=== PATIENT | female | born 1995 | race American Indian/Alaskan Native ===

== ENCOUNTER 2021-11-16 06:20 | Inpatient (IN) | payer MEDICAID ==
[~2021-11-16 06:20] MED LIST: CALCIUM CHLORIDE 1,000 MG/10 ML SYRINGE IV ONE; EPINEPHrine 1 MG/10 ML SYRINGE ONE
[2021-11-16] MEDS ORDERED: GLUCAGON (HUMAN RECOMBINANT) 1 MG/ML INJ ONE ×2 (06:26→06:27)
[2021-11-16] MEDS ORDERED: ALTEPLASE 100 MG INJ KIT ONE (06:49)
[2021-11-16] MEDS ORDERED: SODIUM BICARB 8.4% 50 MEQ/50 ML SYRINGE IV ONE ×2 (06:54→09:00)
[2021-11-16] MEDS ORDERED: NORepinephrine/NS 8 MG-250 ML 8 MG/250 ML INFUS..BTL IV ONE (07:13)
[2021-11-16] MEDS ORDERED: CALCIUM CHLORIDE 1,000 MG/10 ML SYRINGE IV ONE ×2 (07:30→09:00)
[2021-11-16] MEDS ORDERED: NORepinephrine/NS 8 MG-250 ML 8 MG/250 ML INFUS..BTL IV SCH (07:30)
[2021-11-16] MEDS ORDERED: MAGNESIUM SULFATE 40GM/1000ML 40 GM/1,000 ML BAG IV ONE (07:34)
[2021-11-16] MEDS ORDERED: MAGNESIUM SULFATE 2 GM/50 ML BAG IV ONE (07:36)
[2021-11-16 07:39] LABS: Mean Corpuscular HGB Conc 27 % (30-34); Red Blood Count 2.64 M/mm3 (3.65-5.03); Red Cell Distribution Width 16.4 % (13.2-15.2)
[2021-11-16 07:42] LABS: Hematocrit 32.1 % (30.3-42.9); Hemoglobin 8.8 gm/dl (10.1-14.3); Mean Corpuscular Volume 122 fl (79-97); Platelet Count 83 K/mm3 (140-440)
--- NOTE | 2021-11-16 07:45 | Emergency Department Report ---
ED General Adult HPI - General Stated complaint: CARDIAC ARREST Time Seen by Provider: 11/16/21 07:20 Source: EMS Mode of arrival: Stretcher Limitations: Other (Cardiac arrest) - History of Present Illness Initial comments: Patient is a 26-year-old female presents to the emergency department via EMS in cardiac arrest. Per EMS the initial call was for difficulty of breathing and upon their arrival the patient was having obvious shortness of breath and was outside awaiting their arrival. Per EMS they state the male who was in the home states the patient has been complaining of abdominal pain for the last couple of days. During further assessment the patient became lethargic and then unresponsive. As the patient was being carried down the steps patient lost pulse. Initial blood glucose was 26 and D5 was initiated. Patient then went to cardiac arrest during transport and the patient was given 4 epis and 2 mg of Narcan. Patient also had episode of V. tach and was shocked and given through the amnio. Patient was intubated in the field and there were reports of blood in the airway thus concern for upper GI bleed. -: Sudden Severity scale (0 -10): 10 Consistency: constant Improves with: none Worsens with: none Associated Symptoms: denies other symptoms Treatments Prior to Arrival: none - Related Data Allergies Allergy/AdvReac Type Severity Reaction Status Date / Time No Known Allergies Allergy Verified 11/16/21 09:16 ED Review of Systems ROS: Stated complaint: CARDIAC ARREST Other details as noted in HPI Comment: Unobtainable due to pts medical conditions ED Physical Exam - General Limitations: Other (Intubated) General appearance: other (Unresponsive, cardiac arrest) - Head Head exam: Present: atraumatic, normocephalic - Eye Eye exam: Absent: scleral icterus, conjunctival injection - ENT ENT exam: Present: mucous membranes moist, other (Dried blood present on the oral mucosa) - Neck Neck exam: Present: normal inspection. Absent: lymphadenopathy - Respiratory Respiratory exam: Present: other (Breath sounds bilaterally with BVM). Absent: rales, stridor - Cardiovascular Cardiovascular Exam: Present: other (Asystole) - GI/Abdominal GI/Abdominal exam: Present: distended, normal bowel sounds. Absent: soft - Extremities Exam Extremities exam: Present: normal inspection - Neurological Exam Neurological exam: Present: other (3T) - Psychiatric Psychiatric exam: Present: other (Unable to assess due to the patient's condition) - Skin Skin exam: Present: warm, dry, intact, normal color ED Course Vital Signs 11/16/21 07:30 Pulse Rate 95 H Blood Pressure 118/53 O2 Sat by Pulse 98 Oximetry - Central Line Placement Right Femoral Consent Obtained: emergent situation Time Out Performed: Yes Patient Placed on Monitor/Pulse Ox: Yes Prep: mask, gloves Central Line Prep: Chlorhexidine scrub Ultrasound Used for Placement: No Central Line Lumen Inserted: triple Reason for Insertion: Emergency Venous Access Bloods Obtained for Lab: Yes Central Line Position: good blood return, all ports aspirated, flus, sutured in place with 3-0 Dressing Applied: Tegaderm Patient Tolerated Procedure: well Complications: none ED Medical Decision Making - Lab Data Result diagrams: 11/16/21 07:25 11/16/21 08:20 Lab Results 11/16/21 11/16/21 11/16/21 Range/Units 07:25 07:25 07:25 WBC 4.9 (4.5-11.0) K/mm3 RBC 2.64 L (3.65-5.03) M/mm3 Hgb 8.8 L (10.1-14.3) gm/dl Hct 32.1 (30.3-42.9) % MCV 122 H (79-97) fl MCH 33 H (28-32) pg MCHC 27 L (30-34) % RDW 16.4 H (13.2-15.2) % Plt Count 83 L (140-440) K/mm3 PT (12.2-14.9) Sec. INR (0.87-1.13) APTT (24.2-36.6) Sec. Sodium 128 L (137-145) mmol/L Potassium 6.4 H* (3.6-5.0) mmol/L Chloride 71.0 L (98-107) mmol/L Carbon Dioxide 9 L* (22-30) mmol/L Anion Gap 54 mmol/L BUN 44 H (7-17) mg/dL Creatinine 3.7 H (0.6-1.2) mg/dL Estimated GFR 18 ml/min BUN/Creatinine Ratio 12 % Glucose 1213 H* (65-100) mg/dL Lactic Acid (0.7-2.0) mmol/L Calcium > 13.0 H* (8.4-10.2) mg/dL Phosphorus 24.40 H (2.5-4.5) mg/dL Magnesium 3.70 H (1.7-2.3) mg/dL Total Bilirubin 1.30 H (0.1-1.2) mg/dL AST 1906 H (5-40) units/L ALT 454 H (7-56) units/L Alkaline Phosphatase 96 (35-129) units/L Total Creatine Kinase 948 H (30-135) units/L Troponin T 0.078 H (0.00-0.029) ng/mL Total Protein 3.5 L (6.3-8.2) g/dL Albumin 1.7 L (3.9-5) g/dL Albumin/Globulin Ratio 0.9 % Lipase 229 H (13-60) units/L HCG, Qual Negative (Negative) Acetaminophen (10.0-30.0) ug/mL 11/16/21 11/16/21 11/16/21 Range/Units 07:25 08:20 08:20 WBC (4.5-11.0) K/mm3 RBC (3.65-5.03) M/mm3 Hgb (10.1-14.3) gm/dl Hct (30.3-42.9) % MCV (79-97) fl MCH (28-32) pg MCHC (30-34) % RDW (13.2-15.2) % Plt Count (140-440) K/mm3 PT 41.1 H (12.2-14.9) Sec. INR 3.63 H (0.87-1.13) APTT > 150.0 H* (24.2-36.6) Sec. Sodium (137-145) mmol/L Potassium (3.6-5.0) mmol/L Chloride (98-107) mmol/L Carbon Dioxide (22-30) mmol/L Anion Gap mmol/L BUN (7-17) mg/dL Creatinine (0.6-1.2) mg/dL Estimated GFR ml/min BUN/Creatinine Ratio % Glucose (65-100) mg/dL Lactic Acid 21.30 H* (0.7-2.0) mmol/L Calcium (8.4-10.2) mg/dL Phosphorus (2.5-4.5) mg/dL Magnesium (1.7-2.3) mg/dL Total Bilirubin (0.1-1.2) mg/dL AST (5-40) units/L ALT (7-56) units/L Alkaline Phosphatase (35-129) units/L Total Creatine Kinase (30-135) units/L Troponin T (0.00-0.029) ng/mL Total Protein (6.3-8.2) g/dL Albumin (3.9-5) g/dL Albumin/Globulin Ratio % Lipase (13-60) units/L HCG, Qual (Negative) Acetaminophen 5.0 L (10.0-30.0) ug/mL 11/16/21 Range/Units 08:20 WBC (4.5-11.0) K/mm3 RBC (3.65-5.03) M/mm3 Hgb (10.1-14.3) gm/dl Hct (30.3-42.9) % MCV (79-97) fl MCH (28-32) pg MCHC (30-34) % RDW (13.2-15.2) % Plt Count (140-440) K/mm3 PT (12.2-14.9) Sec. INR (0.87-1.13) APTT (24.2-36.6) Sec. Sodium (137-145) mmol/L Potassium 5.4 H (3.6-5.0) mmol/L Chloride (98-107) mmol/L Carbon Dioxide (22-30) mmol/L Anion Gap mmol/L BUN (7-17) mg/dL Creatinine (0.6-1.2) mg/dL Estimated GFR ml/min BUN/Creatinine Ratio % Glucose (65-100) mg/dL Lactic Acid (0.7-2.0) mmol/L Calcium (8.4-10.2) mg/dL Phosphorus (2.5-4.5) mg/dL Magnesium (1.7-2.3) mg/dL Total Bilirubin (0.1-1.2) mg/dL AST (5-40) units/L ALT (7-56) units/L Alkaline Phosphatase (35-129) units/L Total Creatine Kinase (30-135) units/L Troponin T (0.00-0.029) ng/mL Total Protein (6.3-8.2) g/dL Albumin (3.9-5) g/dL Albumin/Globulin Ratio % Lipase (13-60) units/L HCG, Qual (Negative) Acetaminophen (10.0-30.0) ug/mL - EKG Data -: EKG Interpreted by Me - EKG Data Interpretation: other (Abnormal EKG with widened QRS interval) - Radiology Data Radiology results: report reviewed - Medical Decision Making Upon the patient's arrival to the ED patient was in full cardiac arrest receiving manual chest compressions and intubated. Multiple rounds of ACLS pro tocol will follow including a doses of epinephrine, at least 4 doses of bicarb, and 2 mg of glucagon. Patient also received multiple doses of calcium chloride, and magnesium sulfate. Patient had return of spontaneous circulation twice. There was a run of V. tach which the patient was defibrillated for Please see code sheet for details Duration of the patient's cardiac arrest was greater than 1 hour Patient was sent to CT for CT of the head, CTA of the chest abdomen pelvis Upon patient returning from CT patient was pulseless chest compressions initiated and epinephrine was given. Return of spontaneous circulation obtained Levophed increased and dopamine initiated Spoke to the patient's mother expressing the dire nature of the patient's condition and she stated she would come to the emergency department. Mother arrived to the emergency department and again discussed the patient's clinical findings and laboratory findings in detail Mother asked for all life-saving measures to be done Patient was admitted to the ICU and I spoke to Dr. Garry Ferrari and Dr. Florentino who is the critical care physician Dr. Florentino asked for the patient to be switched from dopamine to vasopressin and give 2 more liters of fluid Instructed staff on the change in the patient's care Total time discussing the case with either the patient's mother, hospitalist, soda tester with greater than 30 minutes Total time spent on care of the patient is greater than 2 and half hours Critical Care Time: Yes Critical care time in (mins) excluding proc time.: 120 Critical care attestation.: If time is entered above; I have spent that time in minutes in the direct care of this critically ill patient, excluding procedure time. ED Disposition Clinical Impression: Cardiac arrest, Acute renal failure, Hyperkalemia, Transaminitis, Hypercalcemia, Aspiration pneumonia Disposition: 09 ADMITTED INPATIENT Is pt being admited?: Yes Does the pt Need Aspirin: No Condition: Critical Instructions: Bacterial Pneumonia (ED) Referrals: PRIMARY CARE, [Primary Care Provider] - 3-5 Days
[2021-11-16 08:10] LABS: Alanine Aminotransferase 454 units/L (7-56); Albumin 1.7 g/dL (3.9-5); BUN/Creatinine Ratio 12; Blood Urea Nitrogen 44 mg/dL (7-17); Hemolysis Index 54
[2021-11-16 08:16] LABS: Calcium > 13.0 mg/dL (8.4-10.2)
[2021-11-16] MEDS ORDERED: SODIUM CHLORIDE 0.9% 1000 ML 1,000 ML IV ONE ×4 (08:16→08:59)
[2021-11-16] MEDS ORDERED: SODIUM POLYSTYRENE 15 GM/60 ML ORAL LIQD PR ONE (08:21)
--- NOTE | 2021-11-16 08:32 | Cat Scan Report ---
CT HEAD WITHOUT CONTRAST INDICATION / CLINICAL INFORMATION: Cardiac arrest. TECHNIQUE: All CT scans at this location are performed using CT dose reduction for ALARA by means of automated exposure control. COMPARISON: None available. FINDINGS: HEMORRHAGE: None. EXTRA-AXIAL SPACES: Normal in size and morphology for the patient's age. VENTRICULAR SYSTEM: Normal in size and morphology for the patient's age. CEREBRAL PARENCHYMA: No significant abnormality. No acute territorial infarct. MIDLINE SHIFT / HERNIATION: None. CEREBELLUM / BRAINSTEM: No significant abnormality. ORBITS: Normal as visualized. SOFT TISSUES: No significant abnormality. SKULL: No significant abnormality. PARANASAL SINUSES / MASTOID AIR CELLS: There is mild fluid in the posterior right maxillary antrum. T here are multiple opacified ethmoid air cells bilaterally. ADDITIONAL FINDINGS: None. IMPRESSION: 1. No acute intracranial abnormality. 2. Mild bilateral ethmoid and right maxillary sinusitis. Signer Name: Dae Ramirez MD Signed: 11/16/2021 8:27 AM Workstation Name: [id number]
[2021-11-16 08:43] LABS: INR 3.63 (0.87-1.13)
--- NOTE | 2021-11-16 08:48 | History and Physical Report ---
History of Present Illness History of present illness: HPI: 26-year-old female with past medical history of alcohol abuse, fatty liver disease presenting to our facility as a cardiac arrest. Per EMS report patient had been complaining of abdominal pain 2 days prior to admission. Apparently patient had attempted to take Pepto-Bismol to no relief. This morning the patient developed intractable nausea and vomiting and subsequently arrested. EMS arrived and initiated CPR. Shock was administered for rhythm of ventricular tachycardia. Upon arrival to the emergency department patient underwent continued ACLS protocol. She was administered epinephrine, calcium, bicarb, D50, magnesium sulfate, calcium chloride, amiodarone, shocked for ventricular tachycardia rhythm. Patient was subsequently intubated in the emergency department. Initiated on Levophed and dopamine drip. Discussed with the patient mother about patient's grim prognosis. Discussed all CT findings including finding of ischemic bowel with likely perforation. Shortly after my discussion with the patient's mother the patient underwent another cardiac arrest and underwent ACLS protocol. Care staff was able to regain a pulse however patient remained hypotensive. Patient once again coded and was unable to be resuscitated. Time of was 1049. Mother at bedside. PMHx: Alcohol abuse, fatty liver PSHx: Unable to obtain FHx: unable to obtain SHx: Tobacco use- unable to obtain ETOH Use- significant abuse Recreational Drug Use- unable to obtain Medications and Allergies Allergies Allergy/AdvReac Type Severity Reaction Status Date / Time No Known Allergies Allergy Verified 11/16/21 09:16 Active Meds: Active Medications Magnesium Sulfate (Magnesium Sulfate 40gm/1000ml) 40 gm in 1,000 mls @ 25 mls/hr IV ONCE ONE Stop: 11/17/21 23:33 Last Admin: 11/16/21 08:30 Dose: 1 gm/hr, 25 mls/hr Sodium Chloride (Nacl 0.9% 1000 Ml) 1,000 mls @ 999 mls/hr IV BOLUS ONE Stop: 11/16/21 09:16 Last Admin: 11/16/21 08:46 Dose: 999 mls/hr Sodium Chloride (Nacl 0.9% 1000 Ml) 1,000 mls @ 999 mls/hr IV BOLUS ONE Stop: 11/16/21 09:20 Last Admin: 11/16/21 08:46 Dose: 999 mls/hr Insulin Human Isoph/Insulin Regular (Insulin Nph/Regular 70/30 Inj) 10 unit SUB-Q ONCE ONE Stop: 11/16/21 09:01 Exam - Physical Exam Narrative exam: Physical Exam: VITAL SIGNS: Reviewed. GENERAL: The patient appears normally developed, Vital signs as documented. Intubated. Very ill-appearing young woman. HEAD: No signs of head trauma. EYES: Pupils are fixed and dilated EARS: Hearing grossly intact. MOUTH: ET tube with blood constantly being suctioned out NECK: No adenopathy, no JVD. CHEST: Coarse breath sounds. CARDIAC: Bradycardic subsequently asystole VASCULAR: No Edema. Peripheral pulses normal and equal in all extremities. ABDOMEN: Rigid abdomen, no bowel sounds MUSCULOSKELETAL: Unable to assess NEUROLOGIC EXAM: Obtunded, unable to upset PSYCHIATRIC: Unable to assess SKIN: detail exam as documented in skin assessment - Constitutional Vitals: Temp Pulse Resp BP Pulse Ox 95 H 118/53 98 11/16/21 07:30 11/16/21 07:30 11/16/21 07:30 HEART Score - HEART Score Troponin: Troponin T 0.078 ng/mL (0.00-0.029) H 11/16/21 07:25 Results - Labs CBC & Chem 7: 11/16/21 07:25 11/16/21 08:20 Labs: Laboratory Last Values WBC 4.9 K/mm3 (4.5-11.0) 11/16/21 07:25 RBC 2.64 M/mm3 (3.65-5.03) L 11/16/21 07:25 Hgb 8.8 gm/dl (10.1-14.3) L 11/16/21 07:25 Hct 32.1 % (30.3-42.9) 11/16/21 07:25 MCV 122 fl (79-97) H 11/16/21 07:25 MCH 33 pg (28-32) H 11/16/21 07:25 MCHC 27 % (30-34) L 11/16/21 07:25 RDW 16.4 % (13.2-15.2) H 11/16/21 07:25 Plt Count 83 K/mm3 (140-440) L 11/16/21 07:25 PT 41.1 Sec. (12.2-14.9) H 11/16/21 08:20 INR 3.63 (0.87-1.13) H 11/16/21 08:20 Sodium 128 mmol/L (137-145) L 11/16/21 07:25 Potassium 6.4 mmol/L (3.6-5.0) H* 11/16/21 07:25 Chloride 71.0 mmol/L (98-107) L 11/16/21 07:25 Carbon Dioxide 9 mmol/L (22-30) L* 11/16/21 07:25 Anion Gap 54 mmol/L 11/16/21 07:25 BUN 44 mg/dL (7-17) H 11/16/21 07:25 Creatinine 3.7 mg/dL (0.6-1.2) H 11/16/21 07:25 Estimated GFR 18 ml/min 11/16/21 07:25 BUN/Creatinine Ratio 12 % 11/16/21 07:25 Glucose 1213 mg/dL (65-100) H* 11/16/21 07:25 Calcium > 13.0 mg/dL (8.4-10.2) H* 11/16/21 07:25 Phosphorus 24.40 mg/dL (2.5-4.5) H 11/16/21 07:25 Magnesium 3.70 mg/dL (1.7-2.3) H 11/16/21 07:25 Total Bilirubin 1.30 mg/dL (0.1-1.2) H 11/16/21 07:25 AST 1906 units/L (5-40) H 11/16/21 07:25 ALT 454 units/L (7-56) H 11/16/21 07:25 Alkaline Phosphatase 96 units/L (35-129) 11/16/21 07:25 Total Creatine Kinase 948 units/L (30-135) H 11/16/21 07:25 Troponin T 0.078 ng/mL (0.00-0.029) H 11/16/21 07:25 Total Protein 3.5 g/dL (6.3-8.2) L 11/16/21 07:25 Albumin 1.7 g/dL (3.9-5) L 11/16/21 07:25 Albumin/Globulin Ratio 0.9 % 11/16/21 07:25 Lipase 229 units/L (13-60) H 11/16/21 07:25 HCG, Qual Negative (Negative) 11/16/21 07:25 Acetaminophen 5.0 ug/mL (10.0-30.0) L 11/16/21 07:25 Assessment and Plan Assessment and plan: Assessment #Cardiac arrest #Acute hypoxic respiratory failure #Ventricular tachycardia #Pulmonary hemorrhaging #Aspiration pneumonia #Cardiogenic shock #Acute tubular necrosis #Shock liver #Hyperkalemia #Acute ischemic bowel #Alcohol abuse Plan: -despite all heroic measures by care staff and physicians patient was unable to be resuscitated after multiple codes. Time of 1049 Patient mother at bedside, grief counseling administered The high probability of a clinically significant, sudden or life threatening deterioration of the [multi] system(s) required my full and direct attention, intervention and personal management. The aggregate critical care time was [120] minutes. This time is in addition to time spent performing reported procedures but includes the following: [x] Data Review and interpretation [x] Patient assessment and monitoring of vital signs [x] Documentation [x] Medication orders and management
[2021-11-16] MEDS ORDERED: DEXTROSE 50% IN WATER (25GM) 50 ML SYRINGE IV ONE (09:00)
[2021-11-16] MEDS ORDERED: INSULIN NPH/REGULAR 70/30 INJ SUB-Q ONE (09:00)
[2021-11-16] MEDS ORDERED: MAGNESIUM SULFATE 1 GM/2ML (4 MEQ/1ML) INJ ONE (09:00)
[2021-11-16] MEDS ORDERED: VASOPRESSIN 20 UNIT in SODIUM CHLORIDE 0.9% 100 ML IV SCH (09:00)
[2021-11-16] MEDS ORDERED: DOPamine DRIP 800 MG/D5W 250ML PreMix IV ONE (09:00)
[2021-11-16] MEDS ORDERED: MORPHINE 2 MG/1 ML INJ IV PRN (09:00)
[2021-11-16] MEDS ORDERED: AMIODARONE 150 MG/3 ML INJ IV ONE (09:00)
[2021-11-16] MEDS ORDERED: EPINEPHrine 30 MG/30 ML INJ IV ONE (09:00)
[2021-11-16] MEDS ORDERED: EPINEPHrine 1 MG/10 ML SYRINGE ONE (09:00)
[2021-11-16] MEDS ORDERED: ACETAMINOPHEN 325 MG/10.15 ML ORAL LIQD UNIT DOSE FEEDTUBE PRN (09:00)
[2021-11-16] MEDS ORDERED: NALOXONE 2 MG/2 ML INJ ONE (09:00)
[2021-11-16] MEDS ORDERED: LIDOCAINE PF 100 MG/5 ML (CARDIAC SYRINGE) IV ONE (09:00)
[2021-11-16 09:03] LABS: Partial Thromboplastin Time > 150.0 Sec. (24.2-36.6)
--- NOTE | 2021-11-16 09:06 | Cat Scan Report ---
CTA CHEST, ABDOMEN AND PELVIS WITH INTRAVENOUS CONTRAST INDICATION / CLINICAL INFORMATION: Cardiac arrest with ROSC. TECHNIQUE: Axial CT images were obtained after injection of 100 cc Omnipaque [address] A protocol. 3 plane MIP / 3D reconstructions were produced. All CT scans at this location are perform ed using CT dose reduction for ALARA by means of automated exposure control. COMPARISON: None available. FINDINGS: CHEST: There is excellent opacification of the pulmonary arterial system bilaterally without intralum inal filling defect to suggest acute PTE. The thoracic aorta is normal in caliber without dissection. No coronary artery calcification is present. The heart size is normal. There is moderate consolidation throughout the dependent portions of both lower lobes posteromedially . There are milder multifocal patchy groundglass and consolidative opacities throughout both lungs. N o pleural or pericardial effusion. No mediastinal or hilar adenopathy. The tip of the endotracheal tu be is near the sulaiman. ABDOMEN: There are multiple mildly dilated small bowel loops throughout the abdomen. The bowel loops demonstrate mild to moderate diffuse wall thickening. There is also mild diffuse colonic wall thicken ing, best seen in the right colon. There is associated soft tissue stranding throughout the mesenteri c and peritoneal fat. There is mild high density ascites, near the inferior tip of the liver. There i s mild portal venous gas. I see no evidence of pneumoperitoneum. The liver measures 20 cm in length and demonstrates moderate diffuse decreased density compared to th e spleen without focal lesion. The gallbladder, bile ducts, pancreas, spleen, adrenal glands and kidn eys demonstrate no significant abnormality. No adenopathy is present. The abdominal aorta appears red uced in size and may be vasoconstricted. No other vascular abnormality is seen. There is no evidence of aneurysm, dissection or thrombosis. PELVIS: There is mild high density ascites in the cul-de-sac. The distal ureters and urinary bladder are normal. The uterus and adnexal regions are unremarkable. There is no evidence of appendicitis or diverticulitis. There is a right common femoral venous catheter with the tip overlying the right comm on iliac vein. No acute vascular abnormality is identified. No osseous abnormality is seen. IMPRESSION: 1. Generalized bowel wall thickening involving the small bowel and colon. Associated mesenteric/perit tellez edema, mild high density ascites and portal venous gas are characteristic of bowel ischemia/nec rosis. Vasoconstriction of the abdominal aorta 2. Moderate bilateral parenchymal disease, most prominent in the dependent portion of both lower lobe s is characteristic of significant aspiration pneumonia. 3. Hepatomegaly with moderate diffuse fatty infiltration Signer Name: Dae Ramirez MD Signed: 11/16/2021 9:01 AM Workstation Name: [id number]
[2021-11-16] MEDS ORDERED: PIPERACIL/TAZOBACTA 4.5/NS 100 4.5 GM/100 ML VIAL IV ONE (09:18)
[2021-11-16 09:25] LABS: Anisocytosis 1+; Band Neutrophils # (Manual) 0.3 K/mm3; Basophils % (Manual) 0 % (0.0-1.8); Eosinophils % (Manual) 0 % (0.0-4.3); Macrocytosis 2+; Myelocytes # (Manual) 0.2 K/mm3; Total Cells Counted 100
[2021-11-16 09:26] LABS: Platelet Estimate Consistent w Auto
[2021-11-16] MEDS ORDERED: PHYTONADIONE(ADULT ONLY) 10 MG in SODIUM CHLORIDE 0.9% 50 ML IV SCH (10:15)
[2021-11-16] MEDS ORDERED: EPINEPHrine 1 MG/1 ML 8 MG in SODIUM CHLORIDE 0.9% 250ML 242 ML IV SCH ×2 (10:30→11:00)
--- NOTE | 2021-11-16 10:58 | Death Summary ---
Summary - Providers Consults: 11/16/21 08:49 Consult to Physician [CONS] Routine Comment: Consulting Provider: ILIR LLOYD Physician Instructions: Reason For Exam: vent management, cardiac arrest 11/16/21 08:54 Consult to Physician [CONS] Routine Comment: Consulting Provider: OLU STOUT Physician Instructions: Reason For Exam: cardiac arrest 11/16/21 08:56 Consult to Physician [CONS] Routine Comment: Consulting Provider: YONY BAEZ Physician Instructions: Reason For Exam: atn 11/16/21 10:14 Consult to Physician [CONS] Routine Comment: Consulting Provider: DOMINGO LITTLE Physician Instructions: Reason For Exam: ischemic bowel Attending: ABISAI BURRIS MD - summary Date of admission: 11/16/21 08:49 - Final diagnosis (1) Cardiac arrest Note: Final diagnosis: HPI/hospital course 26-year-old female with past medical history of alcohol abuse, fatty liver disease presenting to our facility as a cardiac arrest. Per EMS report patient had been complaining of abdominal pain 2 days prior to admission. Apparently patient had attempted to take Pepto-Bismol to no relief. This morning the patient developed intractable nausea and vomiting and subsequently arrested. EMS arrived and initiated CPR. Shock was administered for rhythm of ventricular tachycardia. Upon arrival to the emergency department patient underwent continued ACLS protocol. She was administered epinephrine, calcium, bicarb, D50, magnesium sulfate, calcium chloride, amiodarone, shocked for ventricular tachycardia rhythm. Patient was subsequently intubated in the emergency department. Initiated on Levophed and dopamine drip. Discussed with the patient mother about patient's grim prognosis. Discussed all CT findings including finding of ischemic bowel with likely perforation. Shortly after my discussion with the patient's mother the patient underwent another cardiac arrest and underwent ACLS protocol. Care staff was able to regain a pulse however patient remained hypotensive. Patient once again coded and was unable to be resuscitated. Time of was 1049. Mother at bedside. (2) Respiratory failure Note: Final diagnosis: (3) Ischemic necrosis of large intestine Note: Final diagnosis:
--- NOTE | 2021-11-16 10:58 | Death Note ---
Note Date of : 11/16/21 Time of : 10:49 Time Pronounced: 10:49 - Preliminary Cause of (problem) (1) Cardiac arrest Preliminary cause of Called to see patient for unresponsiveness. On exam the patient did not respond to verbal or physical stimuli. Absent heart and breath sounds.Absent peripheral pulses. Pupils are fixed and dilated. Patient pronounced at 1049. Next of kin present at bedside. (2) Respiratory failure Preliminary cause of
[2021-11-16 11:15] LABS: Chol/HDL Ratio TNR %; HDL Cholesterol TNR mg/dL (40-59); LDL Cholesterol,Direct TNR mg/dL (50-130)
[2021-11-16 11:32] VITALS: BP 43/8
--- NOTE | 2021-11-17 08:57 | Electrocardiograph Report ---
[facility] Test Date: 2021-11-16 Test Time: 07:23:43 Pat Name: ROBINSON GILES Department: Room: [place] [address] Gender: F Knowledge Engineer: VENTURA : 1995 Requested By: ABISAI BURRIS Order Number: [id number] Reading MD: Tariq Cho Measurements Intervals [place] Rate: 57 P: TN: QRS: -143 QRSD: 156 T: 50 QT: 530 QTc: 518 Interpretive Statements Atrial fibrillation Right bundle branch block Lateral infarct, age indeterminate No previous ECG available for comparison Electronically Signed On 11-17-2021 8:57:00 EDT by Tariq Cho
== END 2021-11-16 11:00 | DRG 208 ==
LOC: ED 06:20 → CC1 08:49
PROVIDERS: ADMIT Internal Medicine; ATTEND Internal Medicine
PROC: 5A1935Z Respiratory Ventilation, Less than 24 Consecutive Hours (ICD-10-PCS; principal; 2021-11-16)
PROC: 0BH17EZ Insertion of Endotracheal Airway into Trachea, Via Natural or Artificial Opening (ICD-10-PCS; 2021-11-16)
PROC: 06HM33Z Insertion of Infusion Device into Right Femoral Vein, Percutaneous Approach (ICD-10-PCS; 2021-11-16)
PROC: 5A12012 Performance of Cardiac Output, Single, Manual (ICD-10-PCS; 2021-11-16)
DX: J69.0 Pneumonitis due to inhalation of food and vomit (principal); K55.049 Acute infarction of large intestine, extent unspecified; K72.00 Acute and subacute hepatic failure without coma; N17.0 Acute kidney failure with tubular necrosis; J96.01 Acute respiratory failure with hypoxia; I47.2 Ventricular tachycardia; I46.9 Cardiac arrest, cause unspecified; E87.5 Hyperkalemia; E83.52 Hypercalcemia; R57.0 Cardiogenic shock; R04.89 Hemorrhage from other sites in respiratory passages; F10.10 Alcohol abuse, uncomplicated
CPT/HCPCS: 36415; 70450; 71275; 74174; 80053; 80061; 80320; 82140; 82550; 83690; 83735; 84100; 84132; 84484; 84703; 85007; 85025; 85610; 85730; 86850; 86900; 86901; 87040; 87076; 93005; 94002; G0378; J2354; J3490; Q0177; G0480; J0171; J0282; J1265; J1610; J1815; J2001; J2310; J2997; J3475; J7030; Q9967